=== PATIENT | male | born 1955 | race Caucasian/White ===

== ENCOUNTER → 2017-03-24 | Outpatient (CLI) | payer BC ==
[~2017-03-24] MED LIST: ASCO500T20 PO; ASPI-586 PO; ATN50T PO; CYCL10TA45 PO; FLUT16SP NSEACH; FNST5T PO; GLIM1TAB PO; GLUC100016 PO; HALO50CR2 TP; HCT25T PO; HYDR-3702 PO; IRBE150T50 PO; KETO10TA PO; LANS30TA3 PO; LOSA100T8 PO; LOSA1TAB69 PO; LVF500T PO; MAGN500T PO; METF1000 PO; METR500T17 PO; MTF500TCR PO; NF-FLON16G; ROSU20TA PO; TAMS0.4C2 PO; TRM50T PO; VALS80TA PO; VITA400C58 PO; ZLP10T PO; ZOLP10TA PO
[2017-03-24 15:08] LABS: BILIRUBIN,URINE Negative (Negative); CLARITY,URINE Clear; COLOR,URINE Yellow; GLUCOSE, URINE (UA) Negative (Negative); LEUKOCYTE ESTERASE, URINE Negative (Negative); MEAN CORPUSCULAR HEMOGLOBIN 30.1 PG (26.0-34.0); MEAN CORPUSCULAR HGB CONC 34.3 g/dL (31.0-37.0); UROBILINOGEN,URINE 0.2 mg/dL (0.2-1.0); WHITE BLOOD COUNT 7.63 10^3uL (4.0-11.0)
[2017-03-24 15:15] LABS: ALBUMIN 4.5 g/dL (3.4-5.0); ANION GAP 16.7 MEQ/L (3-15); CALCULATED IONIZED CALCIUM 4.3 mg/dL (3.8-4.6); TOTAL PROTEIN 7.3 g/dL (6.4-8.5)
[2017-03-24 15:44] LABS: RBC,URINE 0-2 /HPF; URINE CENTRIFUGED VOLUME 12 mL
== END ==
LOC: LAB 14:54
PROVIDERS: ATTEND Orthopaedic Surgery
DX: Z01.818 Encounter for other preprocedural examination (principal); I10 Essential (primary) hypertension
CPT/HCPCS: 36415; 80053; 81003; 81015; 85027; 93005